=== PATIENT | female | born 1945 | race Caucasian/White ===

== ENCOUNTER 2017-05-12 04:38 | Emergency (ER) | payer BC, MEDICARE ==
[~2017-05-12] VITALS: Ht 152.4 cm; Wt 59.6 kg
[2017-05-12 05:03] VITALS: BP 165/84
== END 2017-05-12 05:30 | disposition home or self-care (01) ==
LOC: ED 05:24
DX: I10 Essential (primary) hypertension (principal); E78.00 Pure hypercholesterolemia, unspecified
CPT/HCPCS: 93005